=== PATIENT | male | born 1950 | race Caucasian/White ===

== ENCOUNTER 2022-04-06 11:34 | Emergency (ER) | payer MEDICARE, MEDICAID, SELFPAY ==
--- NOTE | ~2022-04-06 | XR_ITS ---
EXAMINATION: XR CHEST CLINICAL INFORMATION: Difficulty breathing COMPARISON: None TECHNIQUE: Frontal view of the chest was obtained. FINDINGS: The lungs are well expanded. No consolidation, edema, or effusion. No pneumothorax. The cardiomediastinal silhouette is normal in size with a tortuous aorta. No acute osseous abnormality. XR/XR chest 1V IMPRESSION: No acute pulmonary finding.
--- NOTE | ~2022-04-06 | CT_ITS ---
EXAMINATION: CT ABDOMEN AND PELVIS WITH CONTRAST CLINICAL INFORMATION: Upper abdominal pain status post fundoplication 2 years ago COMPARISON: None TECHNIQUE: Multidetector volumetric images were obtained from the superior aspect of the liver through the pubic symphysis following administration 85 mL of Omnipaque 350 intravenous contrast. Sagittal and coronal reformatted images were obtained on the technologist's workstation. Oral contrast: No This CT examination was performed using dose optimization techniques as appropriate, variously including the following: *Automated exposure control *Adjustment of mA and/or kV according to patient size (this includes techniques or standardized protocols for targeted exams where dose is matched to indication/reason for exam; i.e. extremities or head) *Use of iterative reconstruction technique DLP: 572 mGy-cm FINDINGS: Exam quality degraded by motion artifact. LUNG BASES: Linear subsegmental atelectasis. Tortuous descending thoracic aorta. Slightly thick-walled appearance of the distal thoracic esophagus.. LIVER, GALLBLADDER, AND BILIARY TREE: Somewhat limited assessment due to motion artifact. Normal hepatic attenuation. No liver lesion or biliary ductal dilation. The gallbladder is unremarkable with no evidence of radiopaque gallstones, gallbladder wall thickening, or obvious pericholecystic inflammatory changes. PANCREAS: Atrophic. No pancreatic lesion or peripancreatic inflammatory change. SPLEEN: Unremarkable. ADRENAL GLANDS: Unremarkable. KIDNEYS AND URETERS: Symmetric nephrograms. Small parapelvic left renal cysts. No enhancing renal lesions. No hydronephrosis or perinephric collections. BLADDER: Unremarkable. GASTROINTESTINAL TRACT: No appreciable fundoplication wrap identified. Limited assessment of the stomach and bowel due to motion artifact and the mid and upper abdomen. No dilated bowel loops or bowel wall thickening. There is a large amount of formed stool seen throughout the right, transverse, and descending colon. Appendix is not discretely visualized. No inflammatory change at the cecal base. No ascites or free air. ABDOMINAL WALL: No significant hernia is appreciated. LYMPH NODES: No lymphadenopathy. VASCULAR: Normal caliber abdominal aorta. Mild vascular calcifications. PELVIC VISCERA: Unremarkable. OSSEOUS STRUCTURES: Chronic mild superior endplate compression deformity at T9. No acute fracture or suspicious osseous lesion. Mild multilevel degenerative disc disease. CT/CT abdomen pelvis w con IMPRESSION: 1. Overall exam quality is degraded due to motion artifact. 2. No acute intra-abdominal process identified. 3. Mildly thick-walled appearance of the distal thoracic esophagus, which may be due to esophagitis. Correlate clinically. A Kale fundoplication wrap is not identified on the CT. 4. Large colonic stool burden. Correlate clinically with signs or symptoms of constipation.
[2022-04-06 12:40] VITALS: BP 147/100; PULSE 88; RESP 17; TEMP 35.6; O2SAT 97; BMI 24.3
--- NOTE | 2022-04-06 12:46 | ECG_ITS ---
Test Reason : UPPER ABD PAIN Blood Pressure : / mmHG Vent. Rate : 083 BPM Atrial Rate : 000 BPM P-R Int : 000 ms QRS Dur : 086 ms QT Int : 368 ms P-R-T Axes : 000 -19 -08 degrees QTc Int : 432 ms Atrial fibrillation Abnormal ECG No previous ECGs available Referred By: Generic ED Physician Electronically Signed By:MARTIN LAMBERT
[2022-04-06 14:00] LABS: MANUAL DIFF FLAG NO
[2022-04-06 14:02] LABS: Basophils Percent Auto 0.4 % (0-2); Eosinophils Absolute Auto 0.3 X10*3/uL (0.0-0.4); Eosinophils Percent Auto 3.6 % (0-4); Hematocrit 46.7 % (42.0-52.0); Hemoglobin 15.2 g/dl (14.0-18.0); Imm Gran Abs Auto 0.02 X10*3/uL (0.00-0.03); Imm Gran Pct Auto 0.3 % (0.0-0.4); Lymphocytes Absolute Auto 1.5 X10*3/uL (1.2-4.9); Lymphocytes Percent Auto 19.4 % (20-40); Mean Corpuscular HGB Conc 32.5 g/dl (31.0-36.0); Mean Corpuscular Hemoglobin 30.2 pg (27.0-33.0); Mean Corpuscular Volume 92.8 fL (80.0-98.0); Mean Platelet Volume 9.4 fL (9.4-12.4); Monocytes Absolute Auto 0.3 X10*3/uL (0.1-1.2); Monocytes Percent Auto 4.2 % (2-11); Neutrophils Absolute Auto 5.5 x10*3/uL (2.0-8.3); Neutrophils Percent Auto 72.1 % (45-73); Platelet Count 179 X10*3/uL (160-400); Red Blood Count 5.03 X10*6/uL (4.60-5.80); Red Cell Distribution Width 14.2 % (11.0-16.0); White Blood Count 7.6 X10*3/uL (4.8-10.8)
[2022-04-06 14:24] LABS: Alanine Aminotransferase 24 U/L (0-40); Albumin Level 3.9 g/dL (3.5-5.0); Alkaline Phosphatase 89 U/L (39-117); Anion Gap 12 (12-20); Aspartate Amino Transferase 28 U/L (5-37); Bilirubin Total 1.2 mg/dL (0.0-1.0); Blood Urea Nitrogen 15 mg/dL (9-16); Calcium 9.2 mg/dL (8.4-10.2); Carbon Dioxide 28 mmol/L (22-29); Chloride 104 mmol/L (96-108); Creatinine Clr Calc Pharmacy 45.7; Estimated Glomerular Filt Rate > 60; Glucose Random 87 mg/dL (60-115); Lipase 9 U/L (8-78); Potassium 4.3 mmol/L (3.3-5.1); Sodium 140 mmol/L (135-145); Total Protein 6.5 g/dL (6.5-8.0)
[2022-04-06 14:26] LABS: Troponin-I High Sensitivity < 3.5 ng/L (<3.5-35.0)
[2022-04-06 16:20] LABS: Bilirubin Direct 0.5 mg/dL (0.0-0.5)
--- NOTE | 2022-04-06 18:05 | ED.GENADULT ---
HPI - General Adult General Chief complaint: General Medical Stated complaint: upper abd pain/diff breathing Time Seen by Provider: 04/06/22 15:53 Source: patient and family Mode of arrival: ambulatory Limitations: physical limitation (Cognitive impairment) History of Present Illness HPI narrative: Sister presents with 73-year-old brother for evaluation for upper abdominal pain, intermittent shortness of breath for approximately 1 month. Sister states that his behavior changed, and has complaints daily regarding abdominal pain and feeling very full. There is a distant history of hiatal hernia surgical repair at [facility] several years ago. Patient's sister does not recall the name of the surgery. Patient is cognitively impaired however can make his needs known. He states to be constipated and sometimes has difficulty urinating. He denies chest pain and pressure, hematuria, dizziness and weakness. Onset (ago): month(s) Location: abdomen Radiation: non-radiation Severity: moderate Severity scale (1-10): 6 Quality: aching Pain Consistency: intermittent Relieving factors: none Exacerbating factors: eating Associated symptoms: shortness of breath Treatments prior to arrival: none Related Data Previous Rx's Medication Instructions Recorded polyethylene glycol 3350 17 17 g PO DAILY 30 days #510 grams 04/06/22 gram/dose oral powder (Miralax) Allergies Allergy/AdvReac Type Severity Reaction Status Date / Time No Known Allergies Allergy Verified 04/06/22 12:46 Review of Systems Review of Systems: Constitutional: No Fever, No Chills ENT/Mouth: No Ear Pain, No Hoarseness, No sore throat Eyes: No Eye Pain, No Swelling, No Redness, No Foreign Body Cardiovascular: No Chest Pain, No SOB Respiratory: No Cough, No Dyspnea Gastrointestinal: No Nausea, No Vomiting, No Diarrhea, positive abdominal Pain Genitourinary: No Dysuria, No Hematuria Musculoskeletal: No joint pain, No Myalgias, No Joint Swelling Skin: No Skin lacerations, No rash Neuro: No Weakness, No Numbness, No Paresthesias, No Loss of Consciousness, No Dizziness, No Headache Heme/Lymph: no easy bruising, no Lymphadenopathy Endocrine: No Polyuria, No Polydipsia Yes all other systems are reviewed and are negative [facility] Past Medical History Attestation statement: The following information was validated with the patient. Source: old records reviewed Social History Social History Advance Directives: No Advance Directives Information Provided: No Physical Exam ED Vital Signs: Vital Signs - 24 hr 04/06/22 12:40 04/06/22 18:48 04/06/22 21:55 Temperature 96.0 F L 97.8 F Pulse Rate 88 97 74 Respiratory Rate 17 16 16 Blood Pressure 147/100 H 158/115 H 130/87 Pulse Oximetry 97 96 98 Oxygen Delivery Method Room Air Room Air Room Air BMI result Body Mass Index 24.3 Appearance: Alert. Oriented X3. No acute distress. Eyes: Pupils equal, round and reactive to light. ENT: Pharynx normal. Neck: Normal inspection. Neck supple. CVS: Normal heart rate and rhythm. Pulses normal. Respiratory: No respiratory distress. Breath sounds normal. Abdomen: Soft and nontender. Skin: Skin warm and dry. Normal skin color. Normal skin turgor. Extremities: Moves all extremities against resistance. Neuro: No motor deficit. No sensory deficit. Cranial nerves 2-12 intact. 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 Patient has had abdominal pain with shortness of breath intermittently over the past month. Has a history of a hiatal hernia repair and states to have had constipation off and on. He does not recall when his last bowel movement was and states to have intermittent difficulty urinating. Will order additional labs, CT scan of abdomen and pelvis, and urinalysis. 18:54 family noted some red spots on his arms status post IV contrast and CT scan. Will order 0.5 mg of Benadryl IV push. Lung sounds are clear to auscultation all lobes. There are some scattered flat erythematous patches to his right upper extremity, blanchable, 6 spots. Patient does not state to be in any discomfort, denies itching and shortness of breath. 19:30 patient doing well, no apparent adverse effects from IV contrast dye. Patient ate dinner without difficulty. 20:00 CT scan indicates moderate to large stool burden with no acute findings. Order for soapsuds enema. I did discuss this plan of care with patient and his sister, sister agrees with plan. 22:00 large BM. Plan of care is to follow-up with gastroenterology, order for MiraLax daily. Sister verbalized understanding of and agrees to plan of care discharge home. Verbalized understanding of signs symptoms indicating need for emergent intervention. Medical Decision Making MDM Narrative Medical decision making narrative: Hiatal hernia Differential Diagnosis Differential Diagnosis: Acute abdomen cholecystitis, pancreatitis, colitis, constipation Medical Records Medical records reviewed: Yes I reviewed the patient's medical records. Lab Data Lab results reviewed: Yes I reviewed the patient's lab results. Result diagrams: 04/06/22 13:53 04/06/22 13:53 Labs: Lab Results 04/06/22 04/06/22 04/06/22 Range/Units 13:53 13:53 13:53 WBC 7.6 (4.8-10.8) X10*3/uL RBC 5.03 (4.60-5.80) X10*6/uL Hgb 15.2 (14.0-18.0) g/dl Hct 46.7 (42.0-52.0) % MCV 92.8 (80.0-98.0) fL MCH 30.2 (27.0-33.0) pg MCHC 32.5 (31.0-36.0) g/dl RDW 14.2 (11.0-16.0) % Plt Count 179 (160-400) X10*3/uL MPV 9.4 (9.4-12.4) fL Immature Gran % (Auto) 0.3 (0.0-0.4) % Neut % (Auto) 72.1 (45-73) % Lymph % (Auto) 19.4 L (20-40) % [place] % (Auto) 4.2 (2-11) % Eos % (Auto) 3.6 (0-4) % Baso % (Auto) 0.4 (0-2) % Lymph # (Auto) 1.5 (1.2-4.9) X10*3/uL [place] # (Auto) 0.3 (0.1-1.2) X10*3/uL Eos # (Auto) 0.3 (0.0-0.4) X10*3/uL Baso # (Auto) 0.0 (0.0-0.2) X10*3/uL Abs Immat Gran (auto) 0.02 (0.00-0.03) X10*3/uL Absolute Neuts (auto) 5.5 (2.0-8.3) x10*3/uL Absolute Nucleated RBC 0.000 (0.0-0.012) X10*3/uL Nucleated RBC % (auto) 0.0 (0.0-0.2) /100WBC Sodium 140 (135-145) mmol/L Potassium 4.3 (3.3-5.1) mmol/L Chloride 104 (96-108) mmol/L Carbon Dioxide 28 (22-29) mmol/L Anion Gap 12 (12-20) BUN 15 (9-16) mg/dL Creatinine 1.11 (0.5-1.4) mg/dL Estim Creat Clear Calc 45.7 Estimated GFR > 60 Random Glucose 87 (60-115) mg/dL Calcium 9.2 (8.4-10.2) mg/dL Total Bilirubin 1.2 H (0.0-1.0) mg/dL Direct Bilirubin 0.5 (0.0-0.5) mg/dL AST 28 (5-37) U/L ALT 24 (0-40) U/L Alkaline Phosphatase 89 (39-117) U/L Troponin I High Sens < 3.5 (<3.5-35.0) ng/L Total Protein 6.5 (6.5-8.0) g/dL Albumin 3.9 (3.5-5.0) g/dL Lipase 9 (8-78) U/L Urine Color Urine Appearance Urine pH (5.0-8.0) Ur Specific [place]idelity (1.005-1.025) Urine Protein (Neg-Trace) mg/dL Urine Glucose (UA) (Negative) mg/dL Urine Ketones (Negative) mg/dL Urine Blood (Negative) Urine Nitrite (Negative) Ur Leukocyte Esterase (Negative) 04/06/22 Range/Units 22:03 WBC (4.8-10.8) X10*3/uL RBC (4.60-5.80) X10*6/uL Hgb (14.0-18.0) g/dl Hct (42.0-52.0) % MCV (80.0-98.0) fL MCH (27.0-33.0) pg MCHC (31.0-36.0) g/dl RDW (11.0-16.0) % Plt Count (160-400) X10*3/uL MPV (9.4-12.4) fL Immature Gran % (Auto) (0.0-0.4) % Neut % (Auto) (45-73) % Lymph % (Auto) (20-40) % [place] % (Auto) (2-11) % Eos % (Auto) (0-4) % Baso % (Auto) (0-2) % Lymph # (Auto) (1.2-4.9) X10*3/uL [place] # (Auto) (0.1-1.2) X10*3/uL Eos # (Auto) (0.0-0.4) X10*3/uL Baso # (Auto) (0.0-0.2) X10*3/uL Abs Immat Gran (auto) (0.00-0.03) X10*3/uL Absolute Neuts (auto) (2.0-8.3) x10*3/uL Absolute Nucleated RBC (0.0-0.012) X10*3/uL Nucleated RBC % (auto) (0.0-0.2) /100WBC Sodium (135-145) mmol/L Potassium (3.3-5.1) mmol/L Chloride (96-108) mmol/L Carbon Dioxide (22-29) mmol/L Anion Gap (12-20) BUN (9-16) mg/dL Creatinine (0.5-1.4) mg/dL Estim Creat Clear Calc Estimated GFR Random Glucose (60-115) mg/dL Calcium (8.4-10.2) mg/dL Total Bilirubin (0.0-1.0) mg/dL Direct Bilirubin (0.0-0.5) mg/dL AST (5-37) U/L ALT (0-40) U/L Alkaline Phosphatase (39-117) U/L Troponin I High Sens (<3.5-35.0) ng/L Total Protein (6.5-8.0) g/dL Albumin (3.5-5.0) g/dL Lipase (8-78) U/L Urine Color Yellow Urine Appearance Clear Urine pH 7.5 (5.0-8.0) Ur Specific Fidelity >= 1.030 H (1.005-1.025) Urine Protein Negative (Neg-Trace) mg/dL Urine Glucose (UA) 100 H (Negative) mg/dL Urine Ketones Trace (Negative) mg/dL Urine Blood Negative (Negative) Urine Nitrite Negative (Negative) Ur Leukocyte Esterase Negative (Negative) Imaging Data CT scan - abdomen: Attestation: I personally reviewed and interpreted this imaging study as follows: Radiologist's impression: FINDINGS: Exam quality degraded by motion artifact. LUNG BASES: Linear subsegmental atelectasis. Tortuous descending thoracic aorta. Slightly thick-walled appearance of the distal thoracic esophagus..? LIVER, GALLBLADDER, AND BILIARY TREE: Somewhat limited assessment due to motion artifact. Normal hepatic attenuation. No liver lesion or biliary ductal dilation. The gallbladder is unremarkable with no evidence of radiopaque gallstones, gallbladder wall thickening, or obvious pericholecystic inflammatory changes.? PANCREAS: Atrophic. No pancreatic lesion or peripancreatic inflammatory change.? SPLEEN: Unremarkable.? ADRENAL GLANDS: Unremarkable.? KIDNEYS AND URETERS: Symmetric nephrograms. Small parapelvic left renal cysts. No enhancing renal lesions. No hydronephrosis or perinephric collections.? BLADDER: Unremarkable.? GASTROINTESTINAL TRACT: No appreciable fundoplication wrap identified. Limited assessment of the stomach and bowel due to motion artifact and the mid and upper abdomen. No dilated bowel loops or bowel wall thickening. There is a large amount of formed stool seen throughout the right, transverse, and descending colon. Appendix is not discretely visualized. No inflammatory change at the cecal base. No ascites or free air.? ABDOMINAL WALL: No significant hernia is appreciated.? LYMPH NODES: No lymphadenopathy. VASCULAR: Normal caliber abdominal aorta. Mild vascular calcifications. PELVIC VISCERA: Unremarkable.? OSSEOUS STRUCTURES: Chronic mild superior endplate compression deformity at T9. No acute fracture or suspicious osseous lesion. Mild multilevel degenerative disc disease.? CT/CT abdomen pelvis w con IMPRESSION: ? 1. Overall exam quality is degraded due to motion artifact. 2. No acute intra-abdominal process identified. 3. Mildly thick-walled appearance of the distal thoracic esophagus, which may be due to esophagitis. Correlate clinically. A Kale fundoplication wrap is not identified on the CT. 4. Large colonic stool burden. Correlate clinically with signs or symptoms of constipation. ? Chest x-ray: Attestation: I personally reviewed and interpreted this imaging study as follows: Radiologist's impression: EXAMINATION: XR CHEST CLINICAL INFORMATION: Difficulty breathing COMPARISON: None TECHNIQUE: Frontal view of the chest was obtained. FINDINGS: The lungs are well expanded. No consolidation, edema, or effusion. No pneumothorax. The cardiomediastinal silhouette is normal in size with a tortuous aorta. No acute osseous abnormality. XR/XR chest 1V IMPRESSION: No acute pulmonary finding. ECG Data Attestation: I personally reviewed and interpreted this ECG as follows: Prior ECG tracings: not available for review Interpretation: Vent. rate 83 BPM MT interval * ms QRS duration 86 ms QT/QTc 368/432 ms P-R-T axes * -19 -8 Atrial fibrillation Abnormal ECG No previous ECGs available 06-APR-2022 13:45:07 Discharge Plan Discharge Clinical Impression: Abdominal pain, Constipation Patient Disposition: Home, Self-Care Instructions: Constipation (ED), High Fiber Diet (ED), Abdominal Pain (ED) Additional Instructions: Le evaluaron por dolor abdominal. La tomograf?a computarizada del abdomen y la pelvis indic? estre?imiento. Produjo dominique evacuaci?n intestinal johnson a partir de un enema de espuma de jab?n mientras estaba en el departamento de emergencias. [place] MiraLax diariamente. Siga las instrucciones en el empaque. Maria Teresa medicamento se puede comprar sin receta. Te he derivado a Gastroenterolog?a por cambio de h?bitos intestinales. Por favor llame y tristan dominique santosh con el Dr. Mcdonald. Te proporcion? el n?milagros de tel?fono. Beber mucho l?quido. Nydia por elegir maria teresa departamento de emergencias para brown evaluaci?n. Por favor, tristan un seguimiento con el m?dico de atenci?n primaria seg?n sea necesario. Regrese al departamento de emergencias por cualquier s?ntoma nuevo, preocupante o que empeore. You were evaluated for abdominal pain. CT scan of abdomen pelvis indicated constipation. You produced a large bowel movement from a soapsuds enema while in the emergency department. Please take MiraLax daily. Follow the directions on the package. This medication can be purchased [id number]. I have referred you to Gastroenterology for change in bowel habits. Please call and make an appointment with Dr. Mcdonald. I provided the phone number for you. Drink plenty of fluids. Thank you for choosing this emergency department for evaluation. Please follow-up with primary care physician as needed. Return to the emergency department for any new, concerning, or worsening symptoms. Prescriptions: New polyethylene glycol 3350 [Miralax] 17 gram/dose powder 17 g PO DAILY 30 Days Qty: 510 0RF Rx Instructions: Dispense quantity sufficient, may dispense medication excepted by insurance Referrals: Allan Mcdonald [Physician] - 2 weeks (Change in bowel habits, constipation) Interventions: ED Discharge Assessment Last Done: 04/06/22 23:07
[2022-04-06] MEDS: iohexoL 350 MG/ML 100 ML INFUS..BTL IV (18:32)
[2022-04-06 18:48] VITALS: BP 158/115; PULSE 97; RESP 16; O2SAT 96
[2022-04-06] MEDS: 0.9 % Sodium Chloride 1,000 ML 999 ML IVCONT (18:52)
[2022-04-06] MEDS: diphenhydrAMINE HCL 50 MG/ML VIAL 25 MG IVPUSH (18:54)
[2022-04-06 21:55] VITALS: BP 130/87; PULSE 74; RESP 16; TEMP 36.6; O2SAT 98
--- NOTE | 2022-04-06 22:43 | PC.NURSE ---
Assumed care of pt. at 1900. Pt. resting comfortably in bed, with family at bedside.
[2022-04-06 22:59] LABS: Appearance Urine Clear; Color Urine Yellow; Glucose Urine UA 100 mg/dL (Negative); Leukocyte Esterase Urine Negative (Negative); Nitrite Urine Negative (Negative); PH 7.5 (5.0-8.0); Specific Gravity - Urine >= 1.030 (1.005-1.025); Urine Blood Negative (Negative); Urine Ketones Trace mg/dL (Negative); Urine Protein Negative (Neg-Trace)
--- NOTE | 2022-04-06 23:27 | PC.NURSE ---
At approximately 2130 I administered a soap suds enema to this pt. He was able to tolerate the entire enema and hold the liquid in his rectum for a moderate amount of time before getting himself OOB onto the bedside commode and having a large bowel movement. Large amount of formed, brown stool noted in commode. PA aware. Pt was subsequently D/C'd, this note was written post-D/C
== END 2022-04-06 23:28 | disposition home or self-care (01) ==
PROVIDERS: Emergency Provider Emergency Medicine; PCP Internal Medicine
DX: K59.00 Constipation, unspecified (principal); R10.10 Upper abdominal pain, unspecified; R06.02 Shortness of breath; Z79.899 Other long term (current) drug therapy
CPT/HCPCS: 36415; 71045; 74177; 80053; 81003; 82248; 83690; 84484; 85025; 93005; 96361; 96374; 99284; 99285; J1200; Q9967

== ENCOUNTER 2022-09-21 20:37 | Emergency (ER) | payer MEDICARE, MEDICAID, SELFPAY ==
[2022-09-21 21:35] VITALS: BP 152/111; PULSE 91; RESP 18; TEMP 37; O2SAT 98; BMI 23.8
[2022-09-21 22:25] LABS: MANUAL DIFF FLAG NO
[2022-09-21 22:26] LABS: Basophils Percent Auto 0.4 % (0-2); Eosinophils Absolute Auto 0.3 X10*3/uL (0.0-0.4); Eosinophils Percent Auto 6.7 % (0-4); Hematocrit 40.6 % (42.0-52.0); Hemoglobin 13.2 g/dl (14.0-18.0); Imm Gran Abs Auto 0.01 X10*3/uL (0.00-0.03); Imm Gran Pct Auto 0.2 % (0.0-0.4); Lymphocytes Absolute Auto 1.6 X10*3/uL (1.2-4.9); Lymphocytes Percent Auto 30.8 % (20-40); Mean Corpuscular HGB Conc 32.5 g/dl (31.0-36.0); Mean Corpuscular Hemoglobin 29.8 pg (27.0-33.0); Mean Corpuscular Volume 91.6 fL (80.0-98.0); Monocytes Absolute Auto 0.4 X10*3/uL (0.1-1.2); Monocytes Percent Auto 7.9 % (2-11); Neutrophils Absolute Auto 2.7 x10*3/uL (2.0-8.3); Platelet Count 170 X10*3/uL (160-400); Red Blood Count 4.43 X10*6/uL (4.60-5.80); Red Cell Distribution Width 13.7 % (11.0-16.0)
[2022-09-21 22:55] LABS: Anion Gap 12 (12-20); Blood Urea Nitrogen 19 mg/dL (9-16); Carbon Dioxide 28 mmol/L (22-29); Chloride 106 mmol/L (96-108); Creatinine Clr Calc Pharmacy 47.2; Estimated Glomerular Filt Rate > 60; Glucose Random 109 mg/dL (60-115); Sodium 142 mmol/L (135-145)
[2022-09-21 23:58] VITALS: BP 176/106; PULSE 84; RESP 14; O2SAT 98
--- NOTE | 2022-09-22 00:27 | ED_ITS ---
HPI - Wound/Laceration General Chief Complaint: Wound/Laceration Stated Complaint: Cut on R side of abdomen Time Seen by Provider: 09/22/22 00:17 Source: family Mode of arrival: ambulatory Limitations: no limitations History of Present Illness HPI narrative: Patient comes to emergency room complaining of a hemangioma that he accidentally pulled with his sweater while getting dressed and a wood splitting. The fam andreia/patient's daughter tried stopping the bleeding with pressure but it is still bleeding. Patient denies any other symptoms. Patient takes eliquis Related Data Previous Rx's Medication Instructions Recorded polyethylene glycol 3350 17 17 g PO DAILY 30 days #510 grams 04/06/22 gram/dose oral powder (Miralax) Allergies Allergy/AdvReac Type Severity Reaction Status Date / Time No Known Allergies Allergy Verified 04/06/22 12:46 Review of Systems 2 Review of Systems: Constitutional : No Weight loss, No Fever, No Chills, No Night Sweats, No Fatigue, No Malaise ENT/Mouth : No Hearing loss, No Ear Pain, No Nasal Congestion, No Sinus Pain, No Hoarseness, No sore throat, No Rhinorrhea, No Swallowing Difficulty Eyes: No Eye Pain, No Swelling, No Redness, No Foreign Body, No Discharge, No Vision Changes Cardiovascular : No Chest Pain, No SOB, No Dyspnea on Exertion, No Orthopnea, No Edema, No Palpitations Respiratory : No Cough, No Sputum, No Wheezing, No Smoke Exposure, No Dyspnea Gastrointestinal : No Nausea, No Vomiting, No Diarrhea, No Constipation, No abdominal Pain, No Hematochezia, No Melena Genitourinary : no irregular bleeding, No Dysuria, No Urinary Frequency, No Hematuria, No Urinary Incontinence, No Urgency, No Flank Pain, No Urinary Flow Changes, No Hesitancy Musculoskeletal : No joint pain, No Myalgias, No Joint Swelling Skin : Complaining of a meningioma in the skin on the torso which is bleeding Neuro : No Weakness, No Numbness, No Paresthesias, No Loss of Consciousness, No Dizziness, No Headache Psych : No Anxiety/Panic, No Depression, No SI/HI/AH/VH, No Social Issues, Heme/Lymph: No Bruising, No Bleeding,No Lymphadenopathy Endocrine : No Polyuria, No Polydipsia, No Temperature Intolerance [facility] Past Medical History Medical History (Updated 09/22/22 @ 01:00 by Deneen Hill MD) Asthma exacerbation Social History Social History Advance Directives: No Advance Directives Information Provided: Yes Physical Exam Vital Signs: Vital Signs: Last Vital Signs Temp 98.6 F 09/21/22 21:35 Pulse 84 09/21/22 23:58 Resp 14 09/21/22 23:58 BP 176/106 H 09/21/22 23:58 Pulse Ox 98 09/21/22 23:58 O2 Del Method 09/21/22 23:58 BMI result Body Mass Index 23.8 Const: Other: Appearance: Alert. Oriented X3. No acute distress. Eyes: Pupils equal, round and reactive to light. ENT: Pharynx normal. Neck: Normal inspection. Neck supple. No lymph nodes noted. No crepitus CVS: Normal heart rate and rhythm. Pulses normal. Normal S1 and S2 Respiratory: No respiratory distress. Breath sounds normal. No Wheezing. No rales Abdomen: Soft and nontender. No rigidity. No distention. Skin: Skin warm and dry. Patient has meningioma 0.5 cm by 0.5 cm, currently bleeding. Extremities: No lower extremity edema. No Lacerations. No Rash Neuro: Oriented X 3. No motor deficit. No sensory deficit. Moving all extremities. No slurred speech. CN 2 through 12 grossly intact Psych: calm, cooperative, normal affect Medical Decision Making Medical Decision Making MDM Narrative: -3 sutures were applied to the bleeding hemangioma, bleeding stopped Lab Data 09/21/22 22:20 09/21/22 22:20 Labs: Lab Results 09/21/22 09/21/22 Range/Units 22:20 22:20 WBC 5.0 (4.8-10.8) X10*3/uL RBC 4.43 L (4.60-5.80) X10*6/uL Hgb 13.2 L (14.0-18.0) g/dl Hct 40.6 L (42.0-52.0) % MCV 91.6 (80.0-98.0) fL MCH 29.8 (27.0-33.0) pg MCHC 32.5 (31.0-36.0) g/dl RDW 13.7 (11.0-16.0) % Plt Count 170 (160-400) X10*3/uL MPV 10.0 (9.4-12.4) fL Immature Gran % (Auto) 0.2 (0.0-0.4) % Neut % (Auto) 54.0 (45-73) % Lymph % (Auto) 30.8 (20-40) % [place] % (Auto) 7.9 (2-11) % Eos % (Auto) 6.7 H (0-4) % Baso % (Auto) 0.4 (0-2) % Lymph # (Auto) 1.6 (1.2-4.9) X10*3/uL [place] # (Auto) 0.4 (0.1-1.2) X10*3/uL Eos # (Auto) 0.3 (0.0-0.4) X10*3/uL Baso # (Auto) 0.0 (0.0-0.2) X10*3/uL Abs Immat Gran (auto) 0.01 (0.00-0.03) X10*3/uL Absolute Neuts (auto) 2.7 (2.0-8.3) x10*3/uL Absolute Nucleated RBC 0.000 (0.0-0.012) X10*3/uL Nucleated RBC % (auto) 0.0 (0.0-0.2) /100WBC Sodium 142 (135-145) mmol/L Potassium 4.0 (3.3-5.1) mmol/L Chloride 106 (96-108) mmol/L Carbon Dioxide 28 (22-29) mmol/L Anion Gap 12 (12-20) BUN 19 H (9-16) mg/dL Creatinine 1.06 (0.5-1.4) mg/dL Estim Creat Clear Calc 47.2 Estimated GFR > 60 Random Glucose 109 (60-115) mg/dL Calcium 9.0 (8.4-10.2) mg/dL Procedures Laceration Laceration 1: Site: other (Epigastric area) Size (cm): 0.5 Description: other (Bleeding hemangioma) Depth: simple, single layer Local Anesthetic: lidocaine 1% Amount of anesthesia used (mL): 2 Skin layer closed with: nylon Size (cm): 3-0 Number of sutures: 3 Technique: simple, interrupted Discharge Plan Discharge Clinical Impression: Hemangioma of abdominal wall Patient Disposition: Home, Self-Care Instructions: Laceration (ED) Additional Instructions: Your stitches need to be removed in 7-10 days. Please follow-up with your primary care physician tomorrow. If you have any worsening or new symptoms, please return to the emergency room or call 911 Prescriptions: No Action polyethylene glycol 3350 [Miralax] 17 gram/dose powder 17 g PO DAILY 30 Days Qty: 510 0RF Rx Instructions: Dispense quantity sufficient, may dispense medication excepted by insurance
== END 2022-09-22 01:22 | disposition home or self-care (01) ==
PROVIDERS: Emergency Provider Emergency Medicine
DX: D18.01 Hemangioma of skin and subcutaneous tissue (principal)
CPT/HCPCS: 12001; 36415; 80048; 85025; 99283; 99284